=== PATIENT | male | born 1975 | race Caucasian/White ===

== ENCOUNTER 2020-10-07 08:53 | Day surgery (SDC) | payer BC ==
--- NOTE | 2020-10-01 14:58 | HP ---
DATE OF SURGERY: 10/07/2020 HISTORY OF PRESENT ILLNESS: The patient presents with symptomatic bilateral inguinal hernia. He has bilateral groin pain and he sees bulging in the left groin. PAST MEDICAL HISTORY: None. PAST SURGICAL HISTORY: Left knee surgery. ALLERGIES: NKDA. MEDICATIONS: None. FAMILY HISTORY: Degenerative hip and disc. Cardiac. SOCIAL HISTORY: He smokes a half pack of cigarettes a day. Occasional alcohol. REVIEW OF SYSTEMS: CONSTITUTIONAL: Denies fever or chills. CHEST: Denies shortness of breath. CVS: Denies chest pain. ABDOMEN: Reports bilateral inguinal pain. PHYSICAL EXAMINATION: GENERAL: No acute distress. CHEST: Nonlabored. No shortness of breath. CVS: Regular rate and rhythm. ABDOMEN: Soft. EXTREMITIES: No edema. NEUROLOGIC: Alert. PSYCHIATRIC: Appropriate. IMPRESSION: Symptomatic bilateral inguinal hernia. PLAN: Bilateral inguinal hernia repair with possible mesh with Dr. Prateek Gregory. As dictated by April Will NP.
[~2020-10-07 08:53] MED LIST: CEFAZOLIN 2 GM-D5W BAG** 2 GM/50 ML ML IV SCH; KEFZOL 1 GM ONE; Lactated Ringers 1,000 ML IV ONE; Lactated Ringers 1,000 ML IV SCH; Sensorcaine 0.25% 10 ML ONE
[2020-10-07] MEDS ORDERED: Lactated Ringers 1,000 ML IV ONE (08:59)
[2020-10-07] MEDS ORDERED: CEFAZOLIN 2 GM-D5W BAG** 2 GM/50 ML ML IV ONE (09:01)
[2020-10-07] MEDS ORDERED: SUBLIMAZE 100 MCG/2 ML ONE ×3 (12:03→14:34)
[2020-10-07] MEDS ORDERED: Xylocaine-Mpf 2% 5 Ml Vial ONE (12:03)
[2020-10-07] MEDS ORDERED: DIPRIVAN 200 MG/20 ML IV ONE (12:03)
[2020-10-07] MEDS ORDERED: Decadron 4 MG INJ ONE ×3 (12:08→13:29)
[2020-10-07] MEDS ORDERED: TORAdol 30 mg Injection ONE (12:09)
[2020-10-07] MEDS ORDERED: Zofran 4 MG/2 ML VIAL ONE (12:09)
[2020-10-07] MEDS ORDERED: Naropin 0.5% 30 ML VIAL ONE (13:29)
[2020-10-07] MEDS ORDERED: EPINEPHRINE 1MG/ML AMP ONE (13:29)
[2020-10-07] MEDS ORDERED: Sensorcaine 0.25% 10 ML ONE (14:04)
[2020-10-07] MEDS ORDERED: Hydromorphone 1 mg/ml Injection ONE (14:08)
[2020-10-07] MEDS ORDERED: MORPHINE SULFATE 10 MG/ML ONE (14:09)
[2020-10-07] MEDS ORDERED: Compazine 10 MG/2 ML ONE (14:36)
[2020-10-07 16:17] VITALS: BP 127/73; PULSE 93; O2SAT 98
--- NOTE | 2020-10-14 09:19 | OP ---
SURGERY DATE/TIME: 10/07/2020 1218 PREOPERATIVE DIAGNOSIS: Bilateral inguinal hernia. POSTOPERATIVE DIAGNOSIS: Bilateral inguinal hernia. PROCEDURE: Bilateral inguinal herniorrhaphy with mesh. SURGEON: Prateek Gregory M.D. ANESTHESIA: General. COMPLICATIONS: None. CONDITION: Stable. INDICATION: The patient had symptomatic hernia. DESCRIPTION OF PROCEDURE: Taken to surgery. General anesthetic. Routine prep and drape. Left side addressed first. Curvilinear incision and carried down sharply. Hemostasis obtained with electrocautery. The hernia was defined. The cord was skeletonized. The floor was repaired with a 1 x 4 mesh in Miguel's ligament-type fashion throughout. Good solid repair was present. The internal ring was one clamp tight. The ilioinguinal nerve had been preserved with cord. The ilioepigastric had been preserved on the floor. The field was dry. Cord and ilioinguinal nerve laid back in nice position. External oblique closed with 0 Vicryl. Mik fascia closed with 2-0 Vicryl. Skin closed with 4-0 Vicryl. The right side very similarly. It was just a hair smaller hernia. It was repaired with a 1 x 4 mesh and trimmed to size and secured in Miguel's ligament-type fashion throughout. The cord and ilioinguinal nerve was laid back in its normal position. External oblique closed with 0 Vicryl. Mik fascia closed with 2-0 Vicryl. Skin closed with 4-0 Vicryl. Steri-Strips applied. Sterile dressing applied. The patient tolerated the procedure satisfactorily.
== END 2020-10-07 16:10 | disposition home or self-care (01) ==
LOC: SDC 08:53
PROVIDERS: ATTEND Surgery
DX: K40.20 Bilateral inguinal hernia, without obstruction or gangrene, not specified as recurrent (principal)
CPT/HCPCS: 64488; 76937; 76942; 88304; J0171; J0690; J1100; J1170; J1885; J2270; J2405; J2704; J2795; J3010; L0625